=== PATIENT | male | born 2000 | race Two or more races ===

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

== ENCOUNTER 2023-09-22 15:18 | Emergency (ER) | payer OTHER ==
[~2023-09-22] VITALS: Ht 170.2 cm; Wt 84.1 kg
[2023-09-22 15:54] VITALS: TEMP 98
[2023-09-22] MEDS ORDERED: BACI28.410 TP (17:04)
[2023-09-22] MEDS ORDERED: IBUP-1554 PO (17:04)
[2023-09-22] MEDS: BACITRACIN 0.9 GM PACKET OINTMENT TP ONE (17:30)
[2023-09-22] MEDS: PERTUSS(ACELL),DIPH,TET/PF 0.5 ML SYRINGE [ADULT] IM. ONE (17:31)
[2023-09-22] MEDS: LIDOCAINE 1% 10 ML VIAL SQ ONE (17:31)
[2023-09-22 17:57] VITALS: BP 140/80; PULSE 85; RESP 16
== END 2023-09-22 17:59 | disposition home or self-care (01) ==
LOC: EMS 16:28
DX: S61.012A Laceration without foreign body of left thumb without damage to nail, initial encounter (principal); X58.XXXA Exposure to other specified factors, initial encounter; Y93.89 Activity, other specified; Y92.89 Other specified places as the place of occurrence of the external cause; Y99.8 Other external cause status
CPT/HCPCS: 99284; 12041; 90715; 90471; J3490; 12001; 99283